=== PATIENT | female | born 1980 | race African-American/Black ===

== ENCOUNTER 2017-12-20 14:55 | Emergency (ER) | payer BC, OTHER ==
[2017-12-20] MEDS ORDERED: Sodium Chloride 0.9% 1,000 ML IV ONE ×2 (15:43→17:08)
[2017-12-20] MEDS ORDERED: Sodium Chloride 0.9% 10 ML Syringe FLUSH PRN (15:43)
[2017-12-20] MEDS ORDERED: Ketorolac 30 MG/ML SDV IVPUSH ONE (15:47)
[2017-12-20] MEDS ORDERED: Ondansetron 4 MG/2 ML SDV IVPUSH ONE (15:48)
--- NOTE | 2017-12-20 15:55 | EDM.PDOC ---
<Wilma Echavarria - Last Filed: 12/20/17 15:46> ED HPI GENERAL MEDICAL PROBLEM - General Chief Complaint: Fever Stated Complaint: HEADACHE BACK PAIN Time Seen by Provider: 12/20/17 15:15 - History of Present Illness INITIAL COMMENTS - FREE TEXT/NARRATIVE: Samantha is a pleasant 37-year-old [facility] woman who was sent to the ED from a walk-in clinic with concern for uro-sepsis. Samantha reports a headache and low back pain on and off for the past few days, with worsening of symptoms today. Today, she describes her headache as constant, frontal/periorbital, 5/10 in intensity, and not associated with change in vision or any other neurological symptoms. Her low back pain is bilateral, aching, constant, 8/10 in intensity. She denies pain with urination, but does report urinary urgency and frequency with history of UTI and pyelonephritis, with most recent episode 2 years ago. She did have similar symptoms with her prior episode of pyelonephritis. Past medical history is significant for UTI/pyelonephritis, sickle cell trait ( which is associated with chronic joint pain), and one 16 years ago. Lower Back Pain Score (Numeric/FACES): 8 - Related Data Allergies Allergy/AdvReac Type Severity Reaction Status Date / Time No Known Allergies Allergy Verified 12/20/17 15:09 Home Meds: Home Meds Sulfamethoxazole/Trimethoprim [Bactrim Ds Tablet] 1 each PO BID #19 tablet 12/20 [Rx] Past Medical History - Past Health History Medical/Surgical History: Denies Medical/Surgical History Genitourinary History: Reports: UTI, Recurrent Social & Family History - Tobacco Use Smoking Status *Q: Never Smoker ED ROS GENERAL - Review of Systems Review Of Systems: ROS reveals no pertinent complaints other than HPI. ED EXAM, SEPSIS - Physical Exam Text/Narrative:: Pt looks uncomfortable and tearful. She is hot to the touch and feels cold under two warm blankets. Moderate distress. Exam Limited By: No Limitations General Appearance: Alert, Moderate Distress Eye Exam: Bilateral Eye: Normal Inspection, PERRL Throat/Mouth: Other (dry mucous membranes) Respiratory/Chest: Lungs Clear, Normal Breath Sounds Cardiovascular: Normal Peripheral Pulses, No Murmur, Tachycardia (in 100s with regular rhythm) Peripheral Pulses: 2+: Radial (L), Radial (R), Posterior Tibial (L), Posterior Tibial (R) GI/Abdominal Exam: Normal Bowel Sounds, Soft, No Distention, Tender (moderate suprapubic tenderness) Back: CVA Tenderness (R) (mild right CVA tenderness), Paraspinal Tenderness ( left and right paraspinal tenderness in sacral region) Extremities: Normal Inspection, Normal Range of Motion, Normal Capillary Refill Neurological: Alert, Oriented, Normal Cognition Psychiatric: Tearful Skin: Warm (skin is hot to the touch. Patient is chilled under two warm blankets.), Dry Course - Vital Signs Last Recorded V/S: Last Vital Signs Temp 100.0 F 12/20/17 15:04 Pulse 105 H 12/20/17 15:04 Resp 18 12/20/17 15:04 BP 154/94 H 12/20/17 15:04 Pulse Ox 100 12/20/17 15:04 - Orders/Labs/Meds Orders: Active Orders 24 hr Category Date Time Status Peripheral IV Care [RC] . DIRECTED Care 12/20/17 15:43 Active CULTURE BLOOD [BC] Stat Lab 12/20/17 15:55 Received CULTURE URINE [RM] Stat Lab 12/20/17 17:05 Received Blood Culture x2 Reflex Set [OM.PC] Stat Oth 12/20/17 15:43 Ordered Peripheral IV Insertion Adult [OM.PC] Routine Oth 12/20/17 15:42 Ordered Labs: Laboratory Tests 12/20/17 12/20/17 12/20/17 Range/Units 15:55 15:55 15:55 WBC (3.98-10.04) K/mm3 RBC (3.98-5.22) M/mm3 Hgb (11.2-15.7) gm/L Hct (34.1-44.9) % MCV (79.4-94.8) fl MCH (25.6-32.2) pg MCHC (32.2-35.5) g/dl RDW Std Deviation (36.4-46.3) fL Plt Count (182-369) K/mm3 MPV (9.4-12.3) fl Neutrophils % (Manual) (40-60) % Band Neutrophils % (0-10) % Lymphocytes % (Manual) (20-40) % Atypical Lymphs % % Monocytes % (Manual) (2-10) % Eosinophils % (Manual) (0.7-5.8) % Basophils % (Manual) (0.1-1.2) Platelet Estimate Plt Morphology Comment RBC Morph Comment Sodium 136 (136-145) mEq/L Potassium 3.3 L (3.5-5.1) mEq/L Chloride 101 (98-107) mEq/L Carbon Dioxide 25 (21-32) mEq/L Anion Gap 13.3 (5-15) BUN 8 (7-18) mg/dL Creatinine 0.9 (0.55-1.02) mg/dL Est Cr Clr Drug Dosing 78.56 mL/min Estimated GFR (MDRD) > 60 (>60) mL/min BUN/Creatinine Ratio 8.9 L (14-18) Glucose 95 (74-106) mg/dL Lactic Acid 0.7 (0.4-2.0) mmol/L Calcium 8.8 (8.5-10.1) mg/dL Total Bilirubin 1.6 H (0.2-1.0) mg/dL AST 16 (15-37) U/L ALT 18 (14-59) U/L Alkaline Phosphatase 50 (46-116) U/L C-Reactive Protein 5.5 H* (<1.0) mg/dL Total Protein 7.6 (6.4-8.2) g/dl Albumin 3.6 (3.4-5.0) g/dl Globulin 4.0 gm/dL Albumin/Globulin Ratio 0.9 L (1-2) HCG, Qual Negative (NEGATIVE) Urine Color (Yellow) Urine Appearance (Clear) Urine pH (5.0-8.0) Ur Specific Miller (1.005-1.030) Urine Protein (Negative) Urine Glucose (UA) (Negative) Urine Ketones (Negative) Urine Occult Blood (Negative) Urine Nitrite (Negative) Urine Bilirubin (Negative) Urine Urobilinogen (0.2-1.0) Ur Leukocyte Esterase (Negative) Urine RBC (0-5) /hpf Urine WBC (0-5) /hpf Ur Epithelial Cells (0-5) /hpf Urine Bacteria (FEW) /hpf Urine Mucus (FEW) /hpf 12/20/17 12/20/17 Range/Units 16:25 17:05 WBC 8.90 (3.98-10.04) K/mm3 RBC 4.54 (3.98-5.22) M/mm3 Hgb 12.8 (11.2-15.7) gm/L Hct 37.2 (34.1-44.9) % MCV 81.9 (79.4-94.8) fl MCH 28.2 (25.6-32.2) pg MCHC 34.4 (32.2-35.5) g/dl RDW Std Deviation 37.9 (36.4-46.3) fL Plt Count 224 (182-369) K/mm3 MPV 11.2 (9.4-12.3) fl Neutrophils % (Manual) 75 H (40-60) % Band Neutrophils % 0 (0-10) % Lymphocytes % (Manual) 18 L (20-40) % Atypical Lymphs % 0 % Monocytes % (Manual) 5 (2-10) % Eosinophils % (Manual) 0 L (0.7-5.8) % Basophils % (Manual) 2 H (0.1-1.2) Platelet Estimate Adequate Plt Morphology Comment Normal RBC Morph Comment Normal Sodium (136-145) mEq/L Potassium (3.5-5.1) mEq/L Chloride (98-107) mEq/L Carbon Dioxide (21-32) mEq/L Anion Gap (5-15) BUN (7-18) mg/dL Creatinine (0.55-1.02) mg/dL Est Cr Clr Drug Dosing mL/min Estimated GFR (MDRD) (>60) mL/min BUN/Creatinine Ratio (14-18) Glucose (74-106) mg/dL Lactic Acid (0.4-2.0) mmol/L Calcium (8.5-10.1) mg/dL Total Bilirubin (0.2-1.0) mg/dL AST (15-37) U/L ALT (14-59) U/L Alkaline Phosphatase (46-116) U/L C-Reactive Protein (<1.0) mg/dL Total Protein (6.4-8.2) g/dl Albumin (3.4-5.0) g/dl Globulin gm/dL Albumin/Globulin Ratio (1-2) HCG, Qual (NEGATIVE) Urine Color Yellow (Yellow) Urine Appearance Clear (Clear) Urine pH 7.0 (5.0-8.0) Ur Specific Miller 1.015 (1.005-1.030) Urine Protein Negative (Negative) Urine Glucose (UA) Negative (Negative) Urine Ketones Trace H (Negative) Urine Occult Blood 2+ H (Negative) Urine Nitrite Negative (Negative) Urine Bilirubin Negative (Negative) Urine Urobilinogen 1.0 (0.2-1.0) Ur Leukocyte Esterase Trace H (Negative) Urine RBC 0-5 (0-5) /hpf Urine WBC 5-10 H (0-5) /hpf Ur Epithelial Cells 0-5 (0-5) /hpf Urine Bacteria Moderate H (FEW) /hpf Urine Mucus Few (FEW) /hpf Meds: Medications Discontinued Medications Generic Name Dose Route Start Last Admin Trade Name Freq PRN Reason Stop Dose Admin Sodium Chloride 1,000 mls @ 999 mls/hr 12/20/17 15:43 12/20/17 15:53 Normal Saline IV 12/20/17 16:43 999 mls/hr ONETIME ONE Administration Ceftriaxone Sodium 2 gm/ 100 mls @ 100 mls/hr 12/20/17 16:19 12/20/17 16:34 Sodium Chloride IV 12/20/17 17:18 100 mls/hr ONETIME ONE Administration Sodium Chloride 1,000 mls @ 999 mls/hr 12/20/17 17:08 12/20/17 17:21 Normal Saline IV 12/20/17 18:08 999 mls/hr ONETIME ONE Administration Ketorolac Tromethamine 30 mg 12/20/17 15:47 12/20/17 16:22 Toradol IVPUSH 12/20/17 15:48 30 mg ONETIME ONE Administration Ondansetron HCl 4 mg 12/20/17 15:48 Zofran IVPUSH 12/20/17 15:49 ONETIME ONE Sodium Chloride 10 ml 12/20/17 15:43 12/20/17 16:24 Saline Flush FLUSH 10 ml ASDIRECTED PRN Administration Keep Vein Open Trimethoprim/Sulfamethoxazole 1 tab 12/20/17 18:45 12/20/17 19:02 Septra Ds PO 12/20/17 18:46 1 tab ONETIME ONE Administration Departure - Departure Disposition: Home, Self-Care 01 Clinical Impression: Pyelonephritis - Discharge Information Prescriptions: Sulfamethoxazole/Trimethoprim [Bactrim Ds Tablet] 1 each PO BID #19 tablet Instructions: Pyelonephritis, Adult Referrals: PCP,None [Primary Care Provider] - Barbara Avila PA-C [Physician Social Economist] - Forms: ED Department Discharge Additional Instructions: Take the Bactrim as prescribed. 1 tab twice a day for 10 days. your first dose was given in the ER. Start your prescription tomorrow. [id number] Tylenol or Motrin as needed for pain relief. Make sure you are drinking plenty of fluids. Follow up in the clinic later this week or early next week. At the [facility], [place], operated by [facility] recommend Dolly Avila or Jigna Melgar. Call [phone] to schedule with one of these providers. Please return to the ER if your symptoms change or worsen. - My Orders Last 24 Hours: My Active Orders 12/20/17 15:42 Peripheral IV Insertion Adult [OM.PC] Routine 12/20/17 15:43 Peripheral IV Care [RC] . DIRECTED Blood Culture x2 Reflex Set [OM.PC] Stat 12/20/17 15:55 CULTURE BLOOD [BC] Stat 12/20/17 17:05 CULTURE URINE [RM] Stat - Assessment/Plan Last 24 Hours: My Active Orders 12/20/17 15:42 Peripheral IV Insertion Adult [OM.PC] Routine 12/20/17 15:43 Peripheral IV Care [RC] . DIRECTED Blood Culture x2 Reflex Set [OM.PC] Stat 12/20/17 15:55 CULTURE BLOOD [BC] Stat 12/20/17 17:05 CULTURE URINE [RM] Stat <Prudence Stringer - Last Filed: 12/20/17 19:55> ED HPI GENERAL MEDICAL PROBLEM - General Source of Information: Reports: Patient History Limitations: Reports: No Limitations - History of Present Illness INITIAL COMMENTS - FREE TEXT/NARRATIVE: I have seen the patient and agree with the HPI as documented by Wilma Barker, medical student. ED ROS GENERAL - Review of Systems Review Of Systems: See Below ED EXAM, SEPSIS - Physical Exam Exam: See Below Course - Radiology Interpretation Free Text/Narrative:: CT abdomen and pelvis Technique: Multiple axial sections were obtained from above the dome of the diaphragm inferiorly through the pubic symphysis. Intravenous and oral contrast was not utilized. Study has been performed as a ureteral stone protocol. Comparison: Prior contrast CT abdomen and pelvis exam of 10/07/13. Findings: Visualized lung bases are clear. Noncontrast appearance of the liver and spleen appears within normal limits. Adrenal glands show no nodule. Pancreas is within normal limits. Gallbladder contains no calcified gallstones. Aorta shows no aneurysm. No retroperitoneal adenopathy or mesenteric abnormalities are seen. Very minimal calcification measuring about 1 mm is seen within the mid right kidney. No other abnormal calcifications are seen within the kidneys. No ureteral dilatation is seen. No ureteral stone is identified. No bladder calculi are seen. No pelvic mass or adenopathy is seen. Appendix is seen which is felt to be within normal limits. No free fluid or inflammatory change is identified. Bone window settings were reviewed which appear within normal limits for the patient's age. Impression: 1. Very minimal 1 mm calcification within the mid right kidney. 2. No ureteral dilatation or ureteral stone is seen. 3. No additional abnormality is appreciated on noncontrast CT study of the abdomen and pelvis performed as a ureteral stone protocol. - Re-Assessments/Exams Free Text/Narrative Re-Assessment/Exam: 12/20/17 18:44 I have seen the patient and agree with the HPI, ROS and PE as documented by Wilma Echavarria, medical student. Patient is feeling greatly improved after IV toradol and fluids. I reviewed the labs and imaging with the patient. To discharge home with close follow-up in the clinic. [id number] Tylenol or Motrin as needed for pain. She is to return here if symptoms change or worsen. Discharge instructions as documented. Departure - Departure Time of Disposition: 18:45 Condition: Fair - Discharge Information *PRESCRIPTION DRUG MONITORING PROGRAM REVIEWED*: No *COPY OF PRESCRIPTION DRUG MONITORING REPORT IN PATIENT DEDE: No
[2017-12-20] MEDS ORDERED: cefTRIAXone 2 GM in Sodium Chloride 0.9% 100 ML IV ONE (16:19)
--- NOTE | 2017-12-20 18:09 | CT ---
CT abdomen and pelvis Technique: Multiple axial sections were obtained from above the dome of the diaphragm inferiorly through the pubic symphysis. Intravenous and oral contrast was not utilized. Study has been performed as a ureteral stone protocol. Comparison: Prior contrast CT abdomen and pelvis exam of 10/07/13. Findings: Visualized lung bases are clear. Noncontrast appearance of the liver and spleen appears within normal limits. Adrenal glands show no nodule. Pancreas is within normal limits. Gallbladder contains no calcified gallstones. Aorta shows no aneurysm. No retroperitoneal adenopathy or mesenteric abnormalities are seen. Very minimal calcification measuring about 1 mm is seen within the mid right kidney. No other abnormal calcifications are seen within the kidneys. No ureteral dilatation is seen. No ureteral stone is identified. No bladder calculi are seen. No pelvic mass or adenopathy is seen. Appendix is seen which is felt to be within normal limits. No free fluid or inflammatory change is identified. Bone window settings were reviewed which appear within normal limits for the patient's age. Impression: 1. Very minimal 1 mm calcification within the mid right kidney. 2. No ureteral dilatation or ureteral stone is seen. 3. No additional abnormality is appreciated on noncontrast CT study of the abdomen and pelvis performed as a ureteral stone protocol. Diagnostic code #2
[2017-12-20] MEDS ORDERED: Sulfamethoxazole/Trimethoprim 800-160 MG Tab PO ONE (18:45)
== END 2017-12-20 19:05 | disposition home or self-care (01) ==
LOC: JD.ED 14:55
DX: N12 Tubulo-interstitial nephritis, not specified as acute or chronic (principal)
CPT/HCPCS: 36415; 74176; 80053; 81001; 83605; 84703; 85007; 85027; 86140; 87040; 87086; 96361; 96365; 96375; 99284; A9270; J0696; J1885; J7030; J7040; J7050; 87088

== ENCOUNTER 2024-03-19 18:00 | Emergency (ER) | payer BC ==
[2024-03-19] MEDS ORDERED: Sodium Chloride 0.9% 10 ML Syringe FLUSH PRN (18:24)
[2024-03-19 18:30] LABS: BASOPHILS PERCENT AUTO 0.4 % (0.0-1.0); EOSINOPHILS ABSOLUTE AUTO 0.1 K/mm3 (0.0-0.4); EOSINOPHILS PERCENT AUTO 0.7 % (0.0-6.0); HEMATOCRIT 38.4 % (37.0-47.0); HEMOGLOBIN 12.8 gm/dl (12.0-16.0); IMMATURE GRAN ABSOLUTE AUTO 0.03 K/mm3 (0.00-0.05); IMMATURE GRAN PERCENT AUTO 0.3 % (0.0-0.4); LYMPHOCYTES ABSOLUTE AUTO 3.2 K/mm3 (1.0-4.8); LYMPHOCYTES PERCENT AUTO 28.9 % (24.0-44.0); MEAN CORPUSCULAR HEMOGLOBIN 28.1 pg (28.0-32.0); MEAN CORPUSCULAR HGB CONC 33.3 g/dl (32.0-36.0); MEAN CORPUSCULAR VOLUME 84.2 fl (83.0-99.0); MONOCYTES ABSOLUTE AUTO 0.4 K/mm3 (0.0-0.8); MONOCYTES PERCENT AUTO 3.7 % (0.0-8.0); NEUTROPHILS ABSOLUTE AUTO 7.3 K/mm3 (1.8-7.7); PLATELET COUNT,PLT 360 K/mm3 (150-400); RED BLOOD CELL COUNT 4.56 M/mm3 (4.10-5.30); WHITE BLOOD CELL COUNT,WBC 11.07 K/mm3 (3.9-11.3)
[2024-03-19] MEDS: Labetalol 100 MG/20 ML MDV IVPUSH ONE (18:41)
[2024-03-19 18:44] LABS: INR 0.98; PROTHROMBIN TIME 10.4 SECONDS (9.7-12.0)
[2024-03-19 18:45] LABS: PTT,PARTIAL THROMBOPLSTIN TIME 26.2 SECONDS (21.7-31.4)
[2024-03-19 18:55] LABS: A/G RATIO 0.9 (1-2); ALBUMIN 3.5 g/dl (3.4-5.0); ANION GAP 17.6 (5-15); BILIRUBIN TOTAL 0.7 mg/dL (0.2-1.0); CALCIUM 9.2 mg/dL (8.5-10.1); EST CRCL DRUG DOSING (CG) 66.51 mL/min; POTASSIUM,K 3.6 mEq/L (3.5-5.1); PROTEIN TOTAL,TP 7.6 g/dl (6.4-8.2)
[2024-03-19] MEDS: Sodium Chloride 0.9% 1,000 ML IV ONE (19:26)
[2024-03-19] MEDS: Ketorolac 30 MG/ML SDV IVPUSH ONE (20:03)
[2024-03-19] MEDS: hydrALAZINE 20 MG/ML SDV IVPUSH ONE (20:03)
[2024-03-19] MEDS: Metoclopramide 10 MG/2 ML SDV IVPUSH ONE (20:03)
[2024-03-19] MEDS: Ondansetron 4 MG Tab.DIS PO ONE (21:53)
== END 2024-03-19 21:55 | disposition home or self-care (01) ==
LOC: JD.ED 18:00
DX: R51.9 Headache, unspecified (principal)
CPT/HCPCS: 36415; 70450; 70496; 70498; 80053; 82947; 84484; 85025; 85610; 85730; 93005; 96361; 96374; 96375; 99284; A9270; J0360; J1920; J7030

== ENCOUNTER 2024-09-06 19:27 | Inpatient (IN) | payer BC ==
[2024-09-06] MEDS ORDERED: Sodium Chloride 0.9% 10 ML Syringe FLUSH PRN (20:12)
[2024-09-06 20:41] LABS: PRO B-TYPE NATRIUR PEPT,BNPPRO 587 pg/mL (0-125)
[2024-09-06 20:43] LABS: A/G RATIO 0.6 (1-2); ALBUMIN 3.4 g/dl (3.4-5.0); ANION GAP 16.6 (5-15); BILIRUBIN TOTAL 2.2 mg/dL (0.2-1.0); BUN/CREATININE RATIO 9.2 (14-18); CALCIUM 10.1 mg/dL (8.5-10.1); CREATININE 1.3 mg/dL (0.55-1.02); EST CRCL DRUG DOSING (CG) 48.66 mL/min; MAGNESIUM 1.6 mg/dL (1.8-2.4); PROTEIN TOTAL,TP 8.7 g/dl (6.4-8.2); TSH 0.301 uIU/mL (0.358-3.74)
[2024-09-06 20:45] LABS: HCG QUALITATIVE,SERUM NEGATIVE (NEGATIVE)
[2024-09-06] MEDS: Sodium Chloride 0.9% 1,000 ML IV ONE (20:46)
[2024-09-06 20:50] LABS: BASOPHILS ABSOLUTE AUTO 0.1 K/mm3 (0.0-0.2); BASOPHILS PERCENT AUTO 0.3 % (0.0-1.0); EOSINOPHILS PERCENT AUTO 0.1 % (0.0-6.0); HEMATOCRIT 37.3 % (37.0-47.0); IMMATURE GRAN ABSOLUTE AUTO 1.25 K/mm3 (0.00-0.05); IMMATURE GRAN PERCENT AUTO 4.6 % (0.0-0.4); LYMPHOCYTES ABSOLUTE AUTO 2.2 K/mm3 (1.0-4.8); LYMPHOCYTES PERCENT AUTO 8.1 % (24.0-44.0); MEAN CORPUSCULAR HEMOGLOBIN 27.8 pg (28.0-32.0); MEAN CORPUSCULAR HGB CONC 34.9 g/dl (32.0-36.0); MEAN CORPUSCULAR VOLUME 79.9 fl (83.0-99.0); MEAN PLATELET VOLUME 11.4 fl (9.4-12.3); MONOCYTES ABSOLUTE AUTO 1.4 K/mm3 (0.0-0.8); MONOCYTES PERCENT AUTO 5.2 % (0.0-8.0); NEUTROPHILS ABSOLUTE AUTO 22.2 K/mm3 (1.8-7.7); NEUTROPHILS PERCENT AUTO 81.7 % (41.0-71.0); PLATELET COUNT,PLT 372 K/mm3 (150-400); RED BLOOD CELL COUNT 4.67 M/mm3 (4.10-5.30); WHITE BLOOD CELL COUNT,WBC 27.14 K/mm3 (3.9-11.3)
[2024-09-06 20:54] LABS: LACTIC ACID 2.1 mmol/L (0.4-2.0)
[2024-09-06 21:04] LABS: CORONAVIRUS COVID-19 NAA NEGATIVE (NEGATIVE); INFLUENZA A NAA NEGATIVE (NEGATIVE); RESPIRATORY SYNCYTIAL VIR NAA NEGATIVE (NEGATIVE)
[2024-09-06 21:09] LABS: POTASSIUM,K 2.6 mEq/L (3.5-5.1)
[2024-09-06 22:08] LABS: T4 FREE 1.58 ng/dL (0.76-1.46)
[2024-09-07 00:18] LABS: APPEARANCE,URINE CLEAR (Clear); BILIRUBIN,URINE NEGATIVE (Negative); COLOR,URINE YELLOW (Yellow); GLUCOSE,URINE NEGATIVE (Negative); KETONES,URINE 1+ (Negative); LEUKOCYTE ESTERASE,URINE TRACE (Negative); NITRITE,URINE NEGATIVE (Negative); OCCULT BLOOD,URINE 2+ (Negative); PROTEIN,URINE 2+ (Negative)
[2024-09-07 00:48] LABS: BACTERIA,URINE MODERATE /hpf (FEW); EPITHELIAL CELLS,URINE 0-5 /hpf (0-5); MUCUS,URINE NOT SEEN /hpf (FEW)
[2024-09-07] MEDS: Sodium Chloride 0.9% 1,000 ML IV ONE (01:01)
[2024-09-07] MEDS: Potassium Chloride 20 MEQ Tab.ER PO ONE ×2 (01:01→08:18)
[2024-09-07] MEDS: cefTRIAXone 1 GM Vial IVPUSH ONE (01:01)
[2024-09-07] MEDS: Potassium Chloride 10 MEQ in Premix Bag 1 BAG IV SCH (01:01)
[2024-09-07] MEDS: Magnesium Sulfate 2 GM/50 mL 2 GM in Premix Bag 1 BAG IV ONE (01:01)
[2024-09-07] MEDS: Sodium Chloride 0.9% 500 ML IV ONE (01:02)
[2024-09-07] MEDS: Sodium Chloride 0.9% 500 ML IV SCH (06:48)
[2024-09-07] MEDS ORDERED: Docusate Sodium 100 MG Cap PO PRN (07:26)
[2024-09-07] MEDS ORDERED: Melatonin 3 MG Tab PO PRN (07:26)
[2024-09-07] MEDS ORDERED: Ondansetron 4 MG/2 ML SDV IV PRN (07:26)
[2024-09-07] MEDS: Acetaminophen 325 MG Tab PO PRN (08:18)
[2024-09-07] MEDS ORDERED: Sodium Chloride 0.9% 500 ML IV SCH (18:30)
[2024-09-07] MEDS: Sodium Chloride 0.9% 1,000 ML IV SCH (19:47)
[2024-09-07] MEDS: cefTRIAXone 2 GM Vial IVPUSH SCH (22:32)
[2024-09-08] MEDS ORDERED: cefTRIAXone 1 GM Vial IVPUSH SCH (01:00)
[2024-09-08 07:56] LABS: BASOPHILS ABSOLUTE AUTO 0.1 K/mm3 (0.0-0.2); BASOPHILS PERCENT AUTO 0.3 % (0.0-1.0); EOSINOPHILS PERCENT AUTO 0.1 % (0.0-6.0); HEMATOCRIT 28.2 % (37.0-47.0); IMMATURE GRAN ABSOLUTE AUTO 0.49 K/mm3 (0.00-0.05); IMMATURE GRAN PERCENT AUTO 2.6 % (0.0-0.4); LYMPHOCYTES PERCENT AUTO 10.6 % (24.0-44.0); MEAN CORPUSCULAR HEMOGLOBIN 28.1 pg (28.0-32.0); MEAN CORPUSCULAR HGB CONC 35.5 g/dl (32.0-36.0); MEAN CORPUSCULAR VOLUME 79.2 fl (83.0-99.0); MEAN PLATELET VOLUME 11.6 fl (9.4-12.3); MONOCYTES ABSOLUTE AUTO 1.2 K/mm3 (0.0-0.8); MONOCYTES PERCENT AUTO 6.6 % (0.0-8.0); NEUTROPHILS ABSOLUTE AUTO 14.9 K/mm3 (1.8-7.7); NEUTROPHILS PERCENT AUTO 79.8 % (41.0-71.0); PLATELET COUNT,PLT 320 K/mm3 (150-400); RED BLOOD CELL COUNT 3.56 M/mm3 (4.10-5.30); WHITE BLOOD CELL COUNT,WBC 18.66 K/mm3 (3.9-11.3)
[2024-09-08 08:14] LABS: A/G RATIO 0.5 (1-2); ALBUMIN 2.3 g/dl (3.4-5.0); ANION GAP 10.4 (5-15); BILIRUBIN TOTAL 0.6 mg/dL (0.2-1.0); BUN/CREATININE RATIO 7.1 (14-18); CREATININE 0.7 mg/dL (0.55-1.02); EST CRCL DRUG DOSING (CG) 94.01 mL/min; POTASSIUM,K 3.4 mEq/L (3.5-5.1); PROTEIN TOTAL,TP 6.8 g/dl (6.4-8.2)
[2024-09-08 08:32] LABS: HEMOGLOBIN A1C 6.4 %
[2024-09-08] MEDS: Potassium Chloride 20 MEQ Tab.ER PO SCH (09:40)
[2024-09-09 07:20] LABS: BASOPHILS ABSOLUTE AUTO 0.1 K/mm3 (0.0-0.2); BASOPHILS PERCENT AUTO 0.4 % (0.0-1.0); EOSINOPHILS ABSOLUTE AUTO 0.1 K/mm3 (0.0-0.4); EOSINOPHILS PERCENT AUTO 0.5 % (0.0-6.0); HEMATOCRIT 25.2 % (37.0-47.0); HEMOGLOBIN 8.8 gm/dl (12.0-16.0); IMMATURE GRAN ABSOLUTE AUTO 0.38 K/mm3 (0.00-0.05); IMMATURE GRAN PERCENT AUTO 2.7 % (0.0-0.4); LYMPHOCYTES ABSOLUTE AUTO 2.8 K/mm3 (1.0-4.8); LYMPHOCYTES PERCENT AUTO 20.2 % (24.0-44.0); MEAN CORPUSCULAR HEMOGLOBIN 27.8 pg (28.0-32.0); MEAN CORPUSCULAR HGB CONC 34.9 g/dl (32.0-36.0); MEAN CORPUSCULAR VOLUME 79.7 fl (83.0-99.0); MEAN PLATELET VOLUME 11.2 fl (9.4-12.3); MONOCYTES ABSOLUTE AUTO 0.9 K/mm3 (0.0-0.8); MONOCYTES PERCENT AUTO 6.6 % (0.0-8.0); NEUTROPHILS ABSOLUTE AUTO 9.7 K/mm3 (1.8-7.7); NEUTROPHILS PERCENT AUTO 69.6 % (41.0-71.0); PLATELET COUNT,PLT 370 K/mm3 (150-400); RED BLOOD CELL COUNT 3.16 M/mm3 (4.10-5.30); WHITE BLOOD CELL COUNT,WBC 13.89 K/mm3 (3.9-11.3)
[2024-09-09 07:42] LABS: A/G RATIO 0.5 (1-2); ALBUMIN 2.3 g/dl (3.4-5.0); ANION GAP 10.9 (5-15); BILIRUBIN TOTAL 0.4 mg/dL (0.2-1.0); BUN/CREATININE RATIO 7.1 (14-18); CALCIUM 9.5 mg/dL (8.5-10.1); CREATININE 0.7 mg/dL (0.55-1.02); EST CRCL DRUG DOSING (CG) 94.01 mL/min; MAGNESIUM 1.8 mg/dL (1.8-2.4); POTASSIUM,K 3.9 mEq/L (3.5-5.1); PROTEIN TOTAL,TP 6.9 g/dl (6.4-8.2)
[2024-09-10 05:34] LABS: BASOPHILS ABSOLUTE AUTO 0.1 K/mm3 (0.0-0.2); BASOPHILS PERCENT AUTO 0.8 % (0.0-1.0); EOSINOPHILS ABSOLUTE AUTO 0.1 K/mm3 (0.0-0.4); EOSINOPHILS PERCENT AUTO 0.9 % (0.0-6.0); HEMATOCRIT 27.3 % (37.0-47.0); HEMOGLOBIN 9.5 gm/dl (12.0-16.0); IMMATURE GRAN ABSOLUTE AUTO 0.43 K/mm3 (0.00-0.05); IMMATURE GRAN PERCENT AUTO 4.1 % (0.0-0.4); LYMPHOCYTES ABSOLUTE AUTO 2.7 K/mm3 (1.0-4.8); LYMPHOCYTES PERCENT AUTO 25.7 % (24.0-44.0); MEAN CORPUSCULAR HEMOGLOBIN 28.1 pg (28.0-32.0); MEAN CORPUSCULAR HGB CONC 34.8 g/dl (32.0-36.0); MEAN CORPUSCULAR VOLUME 80.8 fl (83.0-99.0); MEAN PLATELET VOLUME 10.6 fl (9.4-12.3); MONOCYTES ABSOLUTE AUTO 0.8 K/mm3 (0.0-0.8); MONOCYTES PERCENT AUTO 7.7 % (0.0-8.0); NEUTROPHILS ABSOLUTE AUTO 6.4 K/mm3 (1.8-7.7); NEUTROPHILS PERCENT AUTO 60.8 % (41.0-71.0); PLATELET COUNT,PLT 357 K/mm3 (150-400); RED BLOOD CELL COUNT 3.38 M/mm3 (4.10-5.30)
[2024-09-10 05:47] LABS: A/G RATIO 0.5 (1-2); ALBUMIN 2.3 g/dl (3.4-5.0); ANION GAP 11.9 (5-15); BILIRUBIN TOTAL 0.3 mg/dL (0.2-1.0); CALCIUM 8.9 mg/dL (8.5-10.1); CREATININE 0.8 mg/dL (0.55-1.02); EST CRCL DRUG DOSING (CG) 82.26 mL/min; MAGNESIUM 1.7 mg/dL (1.8-2.4); POTASSIUM,K 3.9 mEq/L (3.5-5.1); PROTEIN TOTAL,TP 6.7 g/dl (6.4-8.2)
[2024-09-10] MEDS ORDERED: Ibuprofen 400 MG Tab PO ONE (09:00)
[2024-09-10] MEDS: Magnesium Sulfate 2 GM/50 mL 2 GM/50 ML BAG IV ONE (11:57)
== END 2024-09-10 15:26 | disposition home or self-care (01) | DRG 720 ==
LOC: JD.ED 19:27 → JD.MS 09-07 00:53 → JD.ED 09-07 02:30
PROVIDERS: ADMIT Family Medicine; ATTEND Student in an Organized Health Care Education/Training Program
DX: A41.51 Sepsis due to Escherichia coli [E. coli] (principal); N10 Acute pyelonephritis; N17.9 Acute kidney failure, unspecified; R65.20 Severe sepsis without septic shock; E87.20 Acidosis, unspecified; E86.0 Dehydration; E05.90 Thyrotoxicosis, unspecified without thyrotoxic crisis or storm; E78.00 Pure hypercholesterolemia, unspecified; I10 Essential (primary) hypertension; E83.42 Hypomagnesemia; E87.6 Hypokalemia; R73.03 Prediabetes; Z79.899 Other long term (current) drug therapy; Z86.16 Personal history of COVID-19; Z87.440 Personal history of urinary (tract) infections
CPT/HCPCS: 0241U; 36415; 71045; 71045-26; 74176; 74176-26; 80053; 80179; 81001; 82550; 83036; 83605; 83735; 83880; 84439; 84443; 84481; 84484; 84703; 85025; 86308; 87040; 87077; 87086; 87088; 87154; 87186; 87651; 93005; 93010; 96360; 96361; 97112-GP; 97116-GP; 97162-GP; 99285; 99285-25; A9270-GY; J0696; J3475; J3480; J7030